=== PATIENT | female | born 1945 | race Asian ===

== ENCOUNTER 2019-07-01 11:39 | Day surgery (SDC) | payer MEDICARE, OTHER ==
[~2019-07-01] VITALS: Ht 157.5 cm; Wt 59.3 kg
[~2019-07-01 11:39] MED LIST: AMLO5 PO; Amlodipine Bes2.5 MG PO; BENZ100A PO; HYDACE5 PO; HYDGUAL120 PO; LOSA25; Lipitor20 MG PO; Lovastatin20 MG PO; Multiple Vitam1 EACH PO; OMEP20ER PO; OMEPRAZOLE20 MG PO; Prinivil10 MG PO; VITAMIN D31000 UNI2 PO
--- NOTE | 2019-07-01 13:49 | NUR ---
07/01/19 [id number] Phyllis Quan PT UPDATED ON DELAY IN HER START TIME DUE TO PREVIOUS CASE RUNNING LONGER THAN ANTICIPATED. BED IN LOW, LOCKED POSITION, CALL LIGHT IN REACH. WARM BLANKET OFFERED BY PT DECLINED.
== END 2019-07-01 14:55 | disposition home or self-care (01) ==
LOC: ORSCSDS 11:39
PROVIDERS: Surgery
PROC: 0DB48ZX Excision of Esophagogastric Junction, Via Natural or Artificial Opening Endoscopic, Diagnostic (ICD-10-PCS; principal; 2019-07-01 13:30)
PROC: 0DB68ZX Excision of Stomach, Via Natural or Artificial Opening Endoscopic, Diagnostic (ICD-10-PCS; principal; 2019-07-01 13:30)
DX: K22.70 Barrett's esophagus without dysplasia (principal); E78.5 Hyperlipidemia, unspecified; I10 Essential (primary) hypertension; Z79.899 Other long term (current) drug therapy
CPT/HCPCS: J2704; J7120

== ENCOUNTER 2025-04-14 08:21 | Day surgery (SDC) | payer MEDICARE, OTHER ==
[~2025-04-14] VITALS: Ht 157.5 cm; Wt 53.5 kg
[~2025-04-14 08:21] MED LIST changes: +DICLOFENAC SOD100 GM TP; +MIRALAX17 GM PO; +Triamcinolone A15 G3 TOP; +Vitamin D1000 UNI1 PO
[2025-04-14 11:34] VITALS: BP 157/68
--- NOTE | 2025-04-14 16:53 | NUR ---
04/14/25 Cassandra Torrez WHILE IN PROCEDURE PATIENT SHOWED A PAUSE IN HER RHYTHM STRIP THAT WAS CONSISTENT FOR A FEW BEATS, RN WENT TO INFORM DR FLOWERS AND HER RHYTHM RETURNED TO NORMAL SINUS RHYTHM. PATIENT REMAINED IN NORMAL SINUS RHYTHM THROUGHOUT THE REMAINDER OF THE PROCEDURE, WHICH WAS JUST A FEW MINUTES MORE). DR FLOWERS EXAMINED RHYTHM STRIP THAT CAPTURED THE ABNORMALITY AND PER DR FLOWERS NO NEW ORDERS AND PATIENT WAS OK TO DISCHARGE.
== END 2025-04-14 11:25 | disposition home or self-care (01) ==
LOC: ORSCSDS 08:21
PROVIDERS: Internal Medicine Gastroenterology
PROC: 0DJ08ZZ Inspection of Upper Intestinal Tract, Via Natural or Artificial Opening Endoscopic (ICD-10-PCS; principal; 2025-04-14 10:00)
DX: K74.60 Unspecified cirrhosis of liver (principal); Z13.810 Encounter for screening for upper gastrointestinal disorder; K22.70 Barrett's esophagus without dysplasia; K21.9 Gastro-esophageal reflux disease without esophagitis; I10 Essential (primary) hypertension; E11.9 Type 2 diabetes mellitus without complications; E78.5 Hyperlipidemia, unspecified; M79.7 Fibromyalgia; R10.12 Left upper quadrant pain; Z79.899 Other long term (current) drug therapy
CPT/HCPCS: 82947; 88305; 88342; J2704; J7120